=== PATIENT | female | born 1945 | race African-American/Black ===

== ENCOUNTER → 2016-12-22 | Outpatient (CLI) | payer OTHER ==
[~2016-12-22] MED LIST: ASPIRIN81 M1 PO; CLINORIL200 M1 PO; DIOVAN HCT 160/1 TAB PO; DITROPAN PO; FISH OIL 1,2001 EAC1 PO; HYDROXYZINE HCL25 M1 PO; KCL PO; LUMIGAN2.5 ML OU; METFORMIN HCL500 M1 PO; ZYRTEC10 M2 PO
--- NOTE | ~2016-12-22 | MY11 ---
[facility] A Service of [facility] RADIOLOGY TEXT RESULTS PATIENT: CHUY SALDANA LOCATION: [facility] : 45 UNIT #: [id number] AGE: [address]: ANTONY REYES APRN SEX: F ORDER DR: [id number] [place], [place] [address] [id number] O MR#: [id number] Acc #: [id number] NAME: CHUY SALDANA : 1945 SEX: F STUDY DATE/TIME: 12/22/2016 11:22 UNIT: [facility] ROOM: STUDY DESCRIPTION: MY Mammogram Screening Dig Beni Attending Physician: Antony Reyes Referring Physician: Antony Reyes Ordering Physician: Physician Non-Staff Primary Care Physician: Antony Reyes MEDICAL IMAGING REPORT This report is preliminary unless electronic signature is present EXAM Bilateral digital screening mammogram CAD COMPARISON December 20, 2015 and April 05, 2012. INDICATION Breast cancer screening. 71-year-old asymptomatic female. No personal or family history breast cancer. FINDINGS There are scattered fibroglandular densities. There are no suspicious findings in the left breast. In the posterior third of the right breast at approximately the 8 o'clock position there is developing focal asymmetry measuring up to as much as 9.0 mm. There is a separate focal asymmetry, possibly a mass in the 2 o'clock posterior third of the right breast measuring up to 4.0 mm. IMPRESSION 1. No mammographic evidence of malignancy in the left breast. 2. Two right breast focal asymmetries. Further evaluation with spot compression XCCL and spot compression MLO views is recommended, possibly followed by right breast ultrasound. Patients over the age of 40 are entered into a reminder system with target due date for the next mammogram. A result letter will also be sent to the patient. BIRADS 0 Incomplete: Need Additional Imaging Evaluation and/or Prior Mammograms for Comparison [facility] A Service of [facility] RADIOLOGY TEXT RESULTS PATIENT: CHUY SALDANA LOCATION: [facility] : 45 UNIT #: [id number] AGE: [address]: ANTONY REYES APRN SEX: F ORDER DR: Dictated by... Artie Lay M.D. THIS IS AN ELECTRONICALLY VERIFIED REPORT Artie Lay M.D. at 12/24/2016 10:50 AM Kristie TD: 12/22/2016 14:52 JOB #: [id number] MEDICAL IMAGING REPORT Page 1 of 1 COPY
== END | disposition home or self-care (01) ==
LOC: CWCC 10:32
DX: Z12.31 Encounter for screening mammogram for malignant neoplasm of breast (principal); N64.89 Other specified disorders of breast
CPT/HCPCS: G0202

== ENCOUNTER → 2017-01-06 | Outpatient (CLI) | payer MEDICARE ==
--- NOTE | ~2017-01-06 | US24 ---
[facility] A Service of [facility] RADIOLOGY TEXT RESULTS PATIENT: CHUY SALDANA LOCATION: [facility] : 45 UNIT #: [id number] AGE: [address]: ANTONY REYES APRN SEX: F ORDER DR: [id number] [facility] [address] [place], [place] [address] [id number] O MR#: [id number] Acc #: [id number] NAME: CHUY SALDANA : 1945 SEX: F STUDY DATE/TIME: 01/06/2017 12:47 UNIT: [facility] ROOM: STUDY DESCRIPTION: US Breast Unilateral Attending Physician: Antony Reyes Referring Physician: Antony Reyes Ordering Physician: Rosey Bobo Primary Care Physician: Antony Reyes MEDICAL IMAGING REPORT This report is preliminary unless electronic signature is present EXAM Right breast ultrasound COMPARISON Right diagnostic mammogram on the same date and screening mammogram dated December 22, 2016. INDICATIONS 71-year-old female with 2 persistent right breast masses on diagnostic mammography today. Additional imaging evaluation with right breast ultrasound was indicated. FINDINGS/IMPRESSION Please see separately dictated report of right diagnostic mammography on the same date for full sonographic findings in the right breast as well as final impression and recommendations. BIRADS: 2 Benign findings. Dictated by... Artie Lay M.D. THIS IS AN ELECTRONICALLY VERIFIED REPORT Artie Lay M.D. at 01/09/2017 2:37 PM BLM/to TD: 01/06/2017 16:49 JOB #: [id number] MEDICAL IMAGING REPORT Page 1 of 1 COPY
--- NOTE | ~2017-01-06 | MY8 ---
[facility] A Service of [facility] & [facility] RADIOLOGY TEXT RESULTS PATIENT: CHUY SALDANA LOCATION: [facility] : 45 UNIT #: [id number] AGE: [address]: ARAMIS REYES APRN SEX: F ORDER DR: [id number] [facility] [address] [place], [place] [address] [id number] O MR#: [id number] Acc #: [id number] NAME: CHUY SALDANA : 1945 SEX: F STUDY DATE/TIME: 01/06/2017 12:05 UNIT: [facility] ROOM: STUDY DESCRIPTION: MY Mammogram Dx Dig Rt Attending Physician: Britney Reyes Aprn Referring Physician: Britney Reyes Aprn Ordering Physician: Staff Doctor Not On Primary Care Physician: Britney Reyes Aprn MEDICAL IMAGING REPORT This report is preliminary unless electronic signature is present EXAM Right digital diagnostic mammogram. COMPARISON Mammograms dated December 22, 2016, December 20, 2015, April 05, 2012. INDICATIONS 71-year-old female with 2 developing right breast focal asymmetries. Additional imaging evaluation was recommended. FINDINGS Spot, compression CC and MLO views were performed. There is a persistent oval mass with partly circumscribed and partly obscured margins measuring 9 mm x 5 mm x 5 mm in the 9 o'clock posterior third of the right breast approximately 5 cm from the nipple. There is a separate persistent oval circumscribed and minimally obscured mass in the 2 o'clock middle third of the right breast measuring 3 mm x 5 mm x 2 mm located approximately 5 cm from the nipple. Sonographic evaluation was performed in the 9 o'clock and 2 o'clock positions of the right breast. The 9 o'clock position, approximately 5 cm from the nipple, there is a lobular simple cyst measuring 4 mm x 7 mm x 8 mm, corresponding in size and location to the mammographic mass. Separately, in the 2 o'clock right breast, approximately 4 cm from the nipple, there is a simple cyst measuring 4 mm x 2 mm x 3 mm corresponding in size and location to the other mammographic mass. Separately, the technologist measures another cyst which is more so in the 12 o'clock right breast approximately 2 cm from the nipple measuring 5 mm x 4 mm x 7 mm. IMPRESSION No mammographic or sonographic evidence of malignancy in the right breast. The 2 findings of initial concern are consistent with benign simple cysts. In the absence of interval breast complaints, continued annual screen mammography and clinical breast exam are recommended. Findings and STS. [facility] A Service of [facility] RADIOLOGY TEXT RESULTS PATIENT: CHUY SALDANA LOCATION: [facility] : 45 UNIT #: [id number] AGE: [address]: ARAMIS REYES APRN SEX: F ORDER DR: recommendations were discussed with the patient upon termination of today's exam. Patients over the age of 40 are entered into a reminder system with target due date for the next mammogram. A result letter will also be sent to the patient. BIRADS: 2 Benign findings. Dictated by... Artie Lay M.D. THIS IS AN ELECTRONICALLY VERIFIED REPORT Artie Lay M.D. at 01/09/2017 2:53 PM Arin TD: 01/06/2017 17:02 JOB #: [id number] MEDICAL IMAGING REPORT Page 1 of 1 COPY
== END | disposition home or self-care (01) ==
LOC: CMAM 11:40
DX: R92.8 Other abnormal and inconclusive findings on diagnostic imaging of breast (principal)
CPT/HCPCS: 76641; G0206